=== PATIENT | female | born 1975 | race Two or more races ===

== ENCOUNTER → 2024-09-01 | Outpatient (CLI) | payer MEDICAID, SELFPAY ==
--- NOTE | 2024-09-01 13:30 | XR_ITS ---
Examination: Screening digital mammography, bilateral Computer aided detection 3-D breast Tomosynthesis, bilateral Date and time of exam: September 01, 2024 1315 hours Compared to mammograms dating to October 17, 2017 Indication: Screening, family history, sister breast cancer Technique: Nonmagnified MLO, CC views of the breasts to been obtained, reconstructed from 3-D Tomosynthesis images. R2 computer aided detection program utilized for evaluation of suspicious masses and/or abnormal calcifications. 3-D Tomosynthesis images obtained. Findings: The breasts are heterogeneously dense, which may obscure small masses Benign calcifications 15 mm focal asymmetry upper right breast MLO view 8 mm focal asymmetry upper right breast MLO view Impression: BI-RADS Category 0: Incomplete: Need additional imaging evaluation 15 mm focal asymmetry upper right breast MLO view 8 mm focal asymmetry upper right breast MLO view Recommend follow-up spot tomographic views upper outer quadrant right breast, bilateral breast sonography to complete the workup
== END | disposition home or self-care (01) ==
LOC: CDIM 13:08
PROVIDERS: Referring Provider Nurse Practitioner Family; Visit Provider Nurse Practitioner Family
DX: Z12.31 Encounter for screening mammogram for malignant neoplasm of breast (principal); R92.8 Other abnormal and inconclusive findings on diagnostic imaging of breast; N64.89 Other specified disorders of breast; Z80.3 Family history of malignant neoplasm of breast
CPT/HCPCS: 77063; 77067

== ENCOUNTER → 2024-09-06 | Outpatient (CLI) | payer MEDICAID, SELFPAY ==
--- NOTE | 2024-09-06 07:30 | XR_ITS ---
Examination: Breast ultrasound, unilateral, left complete Date and time of exam: September 06, 2024 0730 hours INDICATIONS: Left breast sonogram February 25, 2024 10:00 nodule left breast Technique: Real-time nair scale ultrasonographic imaging performed left breast including all 4 quadrants as well as nipple retroareolar and axillary region. Findings: 3:00 cyst 8 x 7 mm 10:00 cyst 10 x 10 mm 11:00 cyst 16 x 15 mm 11:00 solid nodule 8 x 6 x 7 mm 3.2 cm left axillary lymph node with smaller lymph nodes IMPRESSION: BI-RADS Category 4: Suspicious for malignancy Suspicious nodule 11:00 position left breast, biopsy is needed to exclude breast, this nodule is amenable to ultrasound-guided breast biopsy for diagnosis
== END | disposition home or self-care (01) ==
LOC: CDIM 07:06
PROVIDERS: Referring Provider Physician Assistant; Visit Provider Physician Assistant
DX: R92.8 Other abnormal and inconclusive findings on diagnostic imaging of breast (principal); N63.32 Unspecified lump in axillary tail of the left breast; N63.22 Unspecified lump in the left breast, upper inner quadrant
CPT/HCPCS: 76641

== ENCOUNTER → 2024-10-27 | Outpatient (CLI) | payer MEDICAID, SELFPAY ==
--- NOTE | 2024-10-27 15:15 | XR_ITS ---
Examination: Breast ultrasound, unilateral, right complete Date and time of exam: October 27, 2024 1531 hours INDICATIONS: Mammogram September 01, 2024 15 mm focal asymmetry upper right breast MLO view 8 mm focal asymmetry upper right breast MLO view Technique: Real-time nair scale ultrasonographic imaging performed right breast including all 4 quadrants as well as nipple retroareolar and axillary region. Findings: 9:00 oval mass lobular margins 8 x 4 x 7 mm IMPRESSION: BI-RADS Category 3: Probably benign findings Recommend 1 additional 6 month right breast sonogram follow-up to document stability of 9:00 nodule described above
--- NOTE | 2024-10-27 15:45 | XR_ITS ---
Examination: Diagnostic digital mammography, unilateral, right Computer aided detection 3-D breast Tomosynthesis, unilateral Date and time of exam: 11/24/2024 1533 hours INDICATIONS: Mammogram December 20, 2022 15 mm focal asymmetry upper right breast MLO view 8 mm focal asymmetry upper right breast MLO view Technique: Nonmagnified MLO, CC views of the right breast have been obtained, reconstructed from 3-D Tomosynthesis images. R2 computer aided detection program utilized for evaluation of suspicious masses and/or abnormal calcifications. 3-D Tomosynthesis images obtained. Findings: The breasts are heterogeneously dense, which may obscure small masses 9:00 nodule 8 mm lobular margins Impression: BI-RADS category 3: Probably benign findings Recommend 1 additional 6 month right mammogram follow-up
== END | disposition home or self-care (01) ==
LOC: CDIM 14:54
PROVIDERS: Referring Provider Nurse Practitioner Family; Visit Provider Nurse Practitioner Family
DX: R92.331 Mammographic heterogeneous density, right breast (principal); N63.15 Unspecified lump in the right breast, overlapping quadrants
CPT/HCPCS: 76641; 77061; 77065; G0279

== ENCOUNTER 2024-11-02 19:40 | Emergency (ER) | payer MEDICAID, SELFPAY ==
[2024-11-02 19:52] VITALS: BP 167/88; PULSE 75; RESP 19; TEMP 36.8; O2SAT 100; BMI 25.2
[2024-11-02] MEDS: FAMOTIDINE 20 MG TABLET 40 MG PO (21:20)
[2024-11-02] MEDS: DiphenhydrAMINE 25 MG CAPSULE PO (21:20)
[2024-11-02] MEDS: DEXAMETHASONE SOD PHOS INJ 10 MG/ML VIAL IM (21:21)
--- NOTE | 2024-11-02 21:42 | PD.EDALLER ---
ED Allergic Reaction RME/HPI General Chief complaint: Allergic Reaction Stated complaint: THINKS SHE HAD ALLERGIC REACTION, RECIEVED EPI PEN Time Seen by Provider: 11/02/24 21:14 Arrival date/time: 11/02/24 19:40 RME / HPI RME / HPI narrative: 49-year-old female presents with complaint of shortness of breath, skin itchiness, and sensation of tongue swelling onset approximately 2 hours ago. Patient states that when she felt her tongue was swelling, she administered her EpiPen. After administering the EpiPen she felt much better. She states that her skin feels itchy still, but denies any tongue swelling or shortness of breath. Denies chest pain. Related Data Home Medications ?Medication ?Instructions ?Recorded ?Confirmed fluticasone propionate 50 1 spray intranasal QDAY #0 spry 04/06/15 07/15/19 mcg/actuation nasal spray,suspension (Flonase Allergy Relief) levothyroxine 88 mcg tablet 88 mcg PO QDAY #0 tabs 04/06/15 07/15/19 losartan 100 1 tab PO QDAY #0 tabs 04/06/15 07/15/19 mg-hydrochlorothiazide 12.5 mg tablet rosuvastatin 10 mg tablet (Crestor) 10 mg PO QDAY 02/22/18 07/15/19 Previous Rx's ?Medication ?Instructions ?Recorded epinephrine 0.3 mg/0.3 mL 0.3 mg (0.3 mL) subcut PRNMRX1 PRN 07/07/18 injection, auto-injector (EpiPen hypersensitivity reaction #2 ea 2-Jonathan) fexofenadine 60 mg tablet (Daysi 60 mg PO Q12H PRN itching #20 tabs 07/07/18 Allergy) ipratropium bromide 21 mcg (0.03 2 spray intranasal BID #30 mL 08/22/ %) nasal spray epinephrine 0.3 mg/0.3 mL 0.3 mg (0.3 mL) subcut PRNMRX1 #2 07/15/19 injection, auto-injector (EpiPen ea 2-Jonathan) hydrocodone 5 mg-acetaminophen 325 1 tab PO Q4H PRN pain #14 tabs 14/20 mg tablet (Wellington) Allergies Allergy/AdvReac Type Severity Reaction Status Date / Time avocado Allergy Unknown Verified 11/02/24 19:42 barley Allergy Unknown Verified 11/02/24 19:42 carrot Allergy Unknown Verified 11/02/24 19:42 cocoa Allergy Unknown Verified 11/02/24 19:42 corn Allergy Unknown Verified 11/02/24 19:42 crab Allergy Unknown Verified 11/02/24 19:42 cranberry Allergy Unknown Verified 11/02/24 19:42 cucumber Allergy Unknown Verified 11/02/24 19:42 mustard Allergy Unknown Verified 11/02/24 19:42 olive extract Allergy Unknown Verified 11/02/24 19:42 peach Allergy Unknown Verified 11/02/24 19:42 peanut Allergy Unknown Verified 11/02/24 19:42 pear Allergy Unknown Verified 11/02/24 19:42 pecan nut Allergy Unknown Verified 11/02/24 19:42 pepper (genus Capsicum) Allergy Unknown Verified 11/02/24 19:42 pineapple Allergy Unknown Verified 11/02/24 19:42 potato Allergy Unknown Verified 11/02/24 19:42 scallops Allergy Unknown Verified 11/02/24 19:42 Review of Systems Review of Systems Systems Reviewed: All systems reviewed, normal except as documented Past Medical History Past Medical History CARDIAC: Positive Cardiac Disorders, Hypercholesterolemia and Hypertension; Negative Congestive Heart Failure RESPIRATORY: Negative Chronic Obstructive Pulmonary Disease (COPD) GENITOURINARY: Negative Renal Disease ENDOCRINE: Positive Hypothyroidism; Negative Diabetes Mellitus Type 1 or Diabetes Mellitus Type 2 PSYCHO/SOCIAL: Positive Anxiety Social History SMOKING STATUS: Never smoker SUBSTANCE USE: does not use Travel History EBOLA RISK: No ED Exam Narrative Physical exam: Constitutional: no acute distress, age appropriate, non-toxic Eyes: PERRL, conjunctivae w/o pallor, EOMI HENT: normocephalic, atraumatic. Oral mucosa moist. Oropharynx normal. No angioedema. Respiratory Effort: no stridor, effort normal, no retractions Breath sounds: Clear bilaterally; No rales, No rhonchi, No wheezing Cardiovascular: regular rhythm, S1 and S2 normal, no murmur Abdominal: soft; non-distended, non-tender Musculoskeletal: no deformities, no swelling, no LE edema Skin: warm, dry; No rash Neurology: alert, oriented X 4. Normal gait. Moves all extremities spontaneously. Psychology: cooperative, normal mood Course Quality Measures none Orders Category Date Time Status Dexamethasone Inj [Decadron Inj] Med 11/02/24 21:14 Discontinued 10 mg IM X1 ONE DiphenhydrAMINE [Benadryl] Med 11/02/24 21:14 Discontinued 25 mg PO X1 ONE Famotidine [Pepcid] Med 11/02/24 21:14 Discontinued 40 mg PO X1 ONE Vital Signs Vital signs: Vital Signs Temperature 98.2 F 11/02/24 19:52 Pulse Rate 75 11/02/24 19:52 Respiratory Rate 19 11/02/24 19:52 Blood Pressure 167/88 H 11/02/24 19:52 Pulse Oximetry (%) 100 11/02/24 19:52 Oxygen Delivery Method Room Air 11/02/24 19:52 Allergic Reaction MDM Narrative MDM Narrative:: 49-year-old female presents with concern for anaphylaxis. Her symptoms have mostly resolved now. Differential diagnoses include anaphylaxis, urticaria, allergic reaction, angioedema No evidence of ongoing anaphylaxis. No evidence of angioedema on exam. Patient was treated here with Decadron, Benadryl, and Pepcid. She reported feeling much better afterwards. She is stable, well-appearing, nontoxic. Vital signs reassuring. Patient reported feeling much better upon reassessment. Recommended follow-up with primary care and strict return to ED precautions given. Patient data External records reviewed:: [facility] previous records Clinical information provided by:: patient Social determinants that could affect healthcare access:: none Patient has the following chronic illnesses:: History of anaphylaxis How is presenting disease/condition affected by chronic disease/condition?: caused by Evaluation data The following diagnostics were reviewed and interpreted by me:: other (specify) (N/A) Lab and/or radiology exams considered but not ordered:: Considered labs and imaging, but not indicated Interpretation Summary: N/A Medications / Prescriptions Medications or Prescriptions considered but not ordered:: N/A Medication administrations:: Medication Administration History Discontinued Medications Dexamethasone Sodium Phosphate (Dexamethasone Sod Phos Inj 10 Mg/Ml Vial) 10 mg IM X1 ONE Stop: 11/02/24 21:15 Last Admin: 11/02/24 21:21 Dose: 10 mg Documented By: EO Diphenhydramine HCl (Diphenhydramine 25 Mg Capsule) 25 mg PO X1 ONE Stop: 11/02/24 21:15 Last Admin: 11/02/24 21:20 Dose: 25 mg Documented By: EO Famotidine (Famotidine 20 Mg Tablet) 40 mg PO X1 ONE Stop: 11/02/24 21:15 Last Admin: 11/02/24 21:20 Dose: 40 mg Documented By: EO See above Consultations Consultation(s) initiated? (list below): No Diagnosis Differential Diagnosis allergic reaction: other (See MDM) Most likely diagnosis given after review of the tests above:: Allergic reaction Admission Indicated Admission indicated?: not indicated Admission Request Was there a request for admission?: No Disposition Plan Disposition Plan: Discharge Discharge Attestation Discharge Attestation: The patient and all family members were given an opportunity to ask questions and understood the discharge instructions. Discharge instructions specifically effects, indications for sooner follow up or return to the emergency department, and the expected course of current diagnosis. Patient condition: Stable Discharge Plan Plan Patient Disposition: HOME (Self Care) Prescriptions/Referrals Prescriptions/Med Rec: No Action ipratropium bromide 0.03 % spray,non-aerosol 2 spray INTRANASAL BID Qty: 30 0RF Rx Instructions: administer into each nostril; wait 30 seconds between sprays rosuvastatin [Crestor] 10 mg tablet 10 mg PO QDAY levothyroxine 88 mcg Tablet 88 mcg PO QDAY Qty: 0 fluticasone propionate [Flonase Allergy Relief] 50 mcg/actuation Rattan,Suspension 1 spray INTRANASAL QDAY Qty: 0 losartan-hydrochlorothiazide 100-12.5 mg Tablet 1 tab PO QDAY Qty: 0 fexofenadine [Daysi Allergy] 60 mg tablet 60 mg PO Q12H PRN (Reason: itching) Qty: 20 0RF epinephrine [EpiPen 2-Jonathan] 0.3 mg/0.3 mL auto-injector 0.3 mg SC PRNMRX1 PRN (Reason: hypersensitivity reaction) Qty: 2 0RF epinephrine [EpiPen 2-Jonathan] 0.3 mg/0.3 mL auto-injector 0.3 mg SC PRNMRX1 Qty: 2 10RF hydrocodone-acetaminophen [Wellington] 5-325 mg tablet 1 tab PO Q4H MDD 4 PRN (Reason: pain) Qty: 14 0RF Referrals: Ale Ro FNP [Primary Care Provider] - In 1 week Problem List Clinical Impression: Allergic reaction Patient/Caregiver Discharge Instructions Education Materials: ED General Allergic Reactions Additional Instructions: Follow-up with primary care as needed. Return to the ED for any new or worsening symptoms. Print Language: [place]ican Stand Alone Forms: [facility]da Award Info., Patient Portal Info Letter
== END 2024-11-02 22:28 | disposition home or self-care (01) ==
PROVIDERS: Emergency Provider Emergency Medicine; PCP Nurse Practitioner Family
DX: R06.02 Shortness of breath (principal); R22.0 Localized swelling, mass and lump, head
CPT/HCPCS: 96372; 99283; J1100; A9270

== ENCOUNTER → 2024-11-15 | Outpatient (CLI) | payer MEDICAID, SELFPAY ==
[2024-11-12 08:53] LABS: Basophils # (Auto) 0.1 Thou/mm3 (0.0-0.2); Basophils % (Auto) 1 % (0-2.5); Eosinophils # (Auto) 0.3 Thou/mm3 (0.0-0.5); Eosinophils % (Auto) 3 % (0-10); Hematocrit 41.4 % (36.0-46.0); Hemoglobin 13.9 g/dL (12.0-16.0); Immature Granulocytes % (Auto) 1 % (0-0); Immature Granulocytes Auto 0.08 Thou/mm3 (0.00-0.00); Lymphocytes # (Auto) 2.6 Thou/mm3 (1.0-4.8); Lymphocytes % (Auto) 28 % (10-50); Mean Corpuscular HGB Conc 33.6 g/dl (31.0-37.0); Mean Corpuscular Hemoglobin 28.5 pg (25.0-35.0); Mean Corpuscular Volume 85 fL (80-100); Monocytes # (Auto) 0.7 Thou/mm3 (0.0-0.8); Monocytes % (Auto) 7 % (0-12); Neutrophils # (Auto) 5.5 Thou/mm3 (1.8-7.7); Neutrophils % (Auto) 60 % (37-80); Nucleated Red Blood Cell % 0 /100 WBC (0); Platelet Count 268 Thou/mm3 (140-440); RDW Standard Deviation 40.4 fL (36.4-46.3); Red Blood Count 4.88 Miln/mm3 (4.00-5.20); White Blood Count 9.1 Thou/mm3 (3.6-11.0)
[2024-11-12 08:55] LABS: HCG,Qualitative Serum Negative
[2024-11-12 09:10] LABS: INR 1.1 (0.9-1.3); Prothrombin Time 11.5 Seconds (9.0-12.2)
--- NOTE | 2024-11-15 10:30 | XR_ITS ---
Examination: PA lateral chest 2 views Technique: Upright PA lateral chest 2 views Exam date and time: November 11, 2024 1522 hrs. Indications: Covid +3 weeks ago with persistent cough Findings: Minor scarring in the lingular segment No lobar pneumonia or pulmonary edema Normal heart size Impression: Minor scarring in the lingular segment
== END | disposition home or self-care (01) ==
PROVIDERS: Radiology Diagnostic Radiology; PCP Nurse Practitioner Family; Referring Provider Nurse Practitioner Family; Visit Provider Nurse Practitioner Family
DX: D24.2 Benign neoplasm of left breast (principal); Z01.812 Encounter for preprocedural laboratory examination
CPT/HCPCS: 19083; 36415; 84703; 85025; 85610; 85730; A4648; A4649; C1894

== ENCOUNTER → 2024-12-14 | Outpatient (CLI) | payer MEDICAID, SELFPAY ==
--- NOTE | 2024-12-14 10:00 | XR_ITS ---
Examination: Diagnostic digital mammography, unilateral, left Computer aided detection 3-D breast Tomosynthesis, unilateral Date and time of exam: December 14, 2024 0956 hours INDICATIONS: Ultrasound-guided left breast biopsy November 15, 2024, negative Technique: Nonmagnified MLO, CC views of the left breast have been obtained, reconstructed from 3-D Tomosynthesis images. R2 computer aided detection program utilized for evaluation of suspicious masses and/or abnormal calcifications. 3-D Tomosynthesis images obtained. Findings: The breast is heterogeneously dense, which may obscure small masses Breast biopsy marker 12:00 position left breast Impression: BI-RADS category 2: Benign findings Return to yearly follow-up mammography Recommend 6 month left breast sonogram follow-up
== END | disposition home or self-care (01) ==
LOC: CDIM 09:49
PROVIDERS: PCP Nurse Practitioner Family; Referring Provider Nurse Practitioner Family; Visit Provider Nurse Practitioner Family
DX: R92.322 Mammographic fibroglandular density, left breast (principal); N64.89 Other specified disorders of breast; Z98.890 Other specified postprocedural states
CPT/HCPCS: 77061; 77065; G0279

== ENCOUNTER 2025-04-18 10:51 | Emergency (ER) | payer BC, SELFPAY ==
[2025-04-18 11:14] VITALS: BP 149/98; PULSE 73; RESP 19; TEMP 36.7; O2SAT 98; BMI 26.0
--- NOTE | 2025-04-18 11:17 | XR_ITS ---
Examination: Pelvic ultrasound, transabdominal, complete Technique: Transabdominal ultrasound of the pelvis performed using grayscale imaging Date and time of exam: April 18, 2025 1216 hours INDICATIONS: Vaginal bleeding beginning 3 weeks ago, worse today. FINDINGS: Uterus 8.1 cm Cervical mass 3.4 x 3.4 x 4.3 cm Endometrial stripe 0.7 cm Right ovary 2.9 cm arterial flow Left ovary 4.0 cm arterial flow 31 x 25 mm cyst IMPRESSION: Recommend MRI pelvis follow-up pre and postcontrast to confirm cervical mass 3.4 x 3.4 x 4.3 cm, differential would include cervical carcinoma
--- NOTE | 2025-04-18 11:18 | PD.EDRME ---
Rapid Medical Screening Exam E Arrival date/time: 04/18/25 10:51 49-year-old female with a history of hypothyroidism, hyperlipidemia, hypertension presents to the emergency room with a chief complaint of vaginal bleeding x 3 days. Patient states she is changing 1 pad an hour and states her bleeding has progressively gotten worse. I have greeted and performed a focused initial assessment of this patient. A comprehensive ED assessment and evaluation of the patient, analysis of all test results, and completion of the medical decision making process will be conducted by additional ED providers. Chief Complaint: Vaginal Bleeding Vital signs: Vital Signs Temperature 98.0 F 04/18/25 11:14 Pulse Rate 73 04/18/25 11:14 Respiratory Rate 19 04/18/25 11:14 Blood Pressure 149/98 H 04/18/25 11:14 Pulse Oximetry (%) 98 04/18/25 11:14 Oxygen Delivery Method Room Air 04/18/25 11:14 Vital signs reviewed by provider: Yes
[2025-04-18 12:03] LABS: Collection Type, Urine Clean Catch; WBC,Urine 0 /hpf (0-5)
[2025-04-18 12:07] LABS: Basophils # (Auto) 0.1 Thou/mm3 (0.0-0.2); Basophils % (Auto) 1 % (0-2.5); Eosinophils # (Auto) 0.3 Thou/mm3 (0.0-0.5); Eosinophils % (Auto) 4 % (0-10); Hematocrit 41.3 % (36.0-46.0); Hemoglobin 14.1 g/dL (12.0-16.0); Immature Granulocytes Auto 0.05 Thou/mm3 (0.00-0.00); Lymphocytes # (Auto) 2.5 Thou/mm3 (1.0-4.8); Lymphocytes % (Auto) 29 % (10-50); Mean Corpuscular HGB Conc 34.1 g/dl (31.0-37.0); Mean Corpuscular Hemoglobin 29.5 pg (25.0-35.0); Mean Corpuscular Volume 86 fL (80-100); Monocytes # (Auto) 0.5 Thou/mm3 (0.0-0.8); Monocytes % (Auto) 6 % (0-12); Neutrophils # (Auto) 5.2 Thou/mm3 (1.8-7.7); Neutrophils % (Auto) 60 % (37-80); Nucleated Red Blood Cell # 0.00 Thou/mm3 (0.00-0.00); Nucleated Red Blood Cell % 0 /100 WBC (0); Platelet Count 297 Thou/mm3 (140-440); RDW Standard Deviation 40.9 fL (36.4-46.3); Red Blood Count 4.78 Miln/mm3 (4.00-5.20); White Blood Count 8.6 Thou/mm3 (3.6-11.0)
[2025-04-18 12:10] LABS: Bilirubin,Urine Negative (Negative); Blood,Urine 1+ (Negative); Clarity,Urine Clear (Clear/Hazy); Color,Urine Colorless (Lt Yel-Yel); Culture Indicated,Urine Not Indicated; Glucose, Urine Negative (Negative); Ketones,Urine Negative (Negative); Leukocyte Esterase,Urine Negative (Negative); Nitrite,Urine Negative (Negative); PH,Urine 6.0 (5.0-7.0); Protein,Urine Negative (Neg - Trace); RBC,Urine 1 /hpf (0-3); Specific Gravity,Urine 1.010 (1.001-1.035); Squamous Epithelial Cell,Urine 2 /hpf (0-5); Urobilinogen,Urine Negative mg/dL (0.0-1.0)
[2025-04-18 12:21] LABS: INR 1.0 (0.9-1.3); Partial Thromboplastin Time 27.3 Seconds (22.0-36.0); Prothrombin Time 11.1 Seconds (9.0-12.2)
[2025-04-18 12:26] LABS: Alanine Aminotransferase 35 U/L (10-49); Albumin, Serum 4.5 gm/dL (3.5-5.0); Albumin/Globulin Ratio 1.5 (1.2-2.2); Alkaline Phosphatase 95 U/L (46-116); Anion Gap 9 (7-16); Aspartate Amino Transferase 25 U/L (0-34); BUN/Creatinine Ratio 14 Ratio (12-20); Bilirubin,Total 0.6 mg/dL (0.3-1.2); Blood Urea Nitrogen 10 mg/dL (9-23); Calcium 9.0 mg/dL (8.3-10.6); Calcium (Corrected) 9.0 mg/dL (8.5-10.1); Carbon Dioxide 26.0 mMol/L (20.0-31.0); Chloride 104 mMol/L (98-107); Creatinine (Component) 0.7 mg/dL (0.6-1.3); Estimated Creatinine Clearance 97.1 mL/min (>60); Globulin 3.0 gm/dL (2.3-3.5); Glucose 103 mg/dL (74-106); Osmolality,Calculated 276 (275-295); Potassium 3.3 mMol/L (3.4-5.1); Sodium 139 mMol/L (136-145); Total Protein 7.5 gm/dL (5.7-8.2); eGFR > 60 See Note
[2025-04-18 13:20] VITALS: BP 167/104; PULSE 73; RESP 16; TEMP 36.7; O2SAT 98
--- NOTE | 2025-04-18 13:41 | PD.EDVAGBL ---
ED OB Contraction Preg RMI/HPI General Chief complaint: Vaginal Bleeding Stated complaint: Cycle for 21 days Time Seen by Provider: 04/18/25 13:22 Arrival date/time: 04/18/25 10:51 Limitations: no limitations RME / HPI RME / HPI Narrative: 04/18/25 10:51 49-year-old female with a history of hypothyroidism, hyperlipidemia, hypertension presents to the emergency room with a chief complaint of vaginal bleeding for 2 weeks, worse in the last 3 days. She states she has been using 2-3 tampons daily. Patient states she is changing 1 pad an hour and states her bleeding has progressively gotten worse today. 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 She had an appointment today at 1630 p.m. but came here as the bleeding got worse. Related Data Home Medications ?Medication ?Instructions ?Recorded ?Confirmed fluticasone propionate 50 1 spray intranasal QDAY #0 spry 04/06/15 07/15/19 mcg/actuation nasal spray,suspension (Flonase Allergy Relief) levothyroxine 88 mcg tablet 88 mcg PO QDAY #0 tabs 04/06/15 07/15/19 losartan 100 1 tab PO QDAY #0 tabs 04/06/15 07/15/19 mg-hydrochlorothiazide 12.5 mg tablet rosuvastatin 10 mg tablet (Crestor) 10 mg PO QDAY 02/22/18 07/15/19 Previous Rx's ?Medication ?Instructions ?Recorded epinephrine 0.3 mg/0.3 mL 0.3 mg (0.3 mL) subcut PRNMRX1 PRN 07/07/18 injection, auto-injector (EpiPen hypersensitivity reaction #2 ea 2-Jonathan) fexofenadine 60 mg tablet (Daysi 60 mg PO Q12H PRN itching #20 tabs 07/07/18 Allergy) ipratropium bromide 21 mcg (0.03 2 spray intranasal BID #30 mL 08/22/ %) nasal spray epinephrine 0.3 mg/0.3 mL 0.3 mg (0.3 mL) subcut PRNMRX1 #2 07/15/19 injection, auto-injector (EpiPen ea 2-Jonathan) hydrocodone 5 mg-acetaminophen 325 1 tab PO Q4H PRN pain #14 tabs 08/05/20 mg tablet ([place]) Allergies Allergy/AdvReac Type Severity Reaction Status Date / Time avocado Allergy Unknown Verified 11/02/24 19:42 barley Allergy Unknown Verified 11/02/24 19:42 carrot Allergy Unknown Verified 11/02/24 19:42 cocoa Allergy Unknown Verified 11/02/24 19:42 corn Allergy Unknown Verified 11/02/24 19:42 crab Allergy Unknown Verified 11/02/24 19:42 cranberry Allergy Unknown Verified 11/02/24 19:42 cucumber Allergy Unknown Verified 11/02/24 19:42 mustard Allergy Unknown Verified 11/02/24 19:42 olive extract Allergy Unknown Verified 11/02/24 19:42 peach Allergy Unknown Verified 11/02/24 19:42 peanut Allergy Unknown Verified 11/02/24 19:42 pear Allergy Unknown Verified 11/02/24 19:42 pecan nut Allergy Unknown Verified 11/02/24 19:42 pepper (genus Capsicum) Allergy Unknown Verified 11/02/24 19:42 pineapple Allergy Unknown Verified 11/02/24 19:42 potato Allergy Unknown Verified 11/02/24 19:42 scallops Allergy Unknown Verified 11/02/24 19:42 Review of Systems Review of Systems Systems Reviewed: All systems reviewed, normal except as documented ED Exam General Limitations: Present no limitations General appearance: Present alert and in no apparent distress Head Head exam: Present atraumatic Eye Eye exam: Present normal appearance, PERRL and EOMI ENT ENT exam: Present normal exam, normal oropharynx and mucous membranes moist Neck Neck exam: Present normal inspection, full ROM and trachea midline Chest Chest inspection: Present normal inspection and symmetric chest wall rise Respiratory Respiratory exam: Present normal lung sounds bilaterally Cardiovascular Cardiovascular exam: Present regular rate, normal rhythm and normal heart sounds Abdominal Exam Abdominal exam: Present soft and normal bowel sounds Extremities Exam Extremities exam: Present normal inspection and full ROM Back Exam Back exam: Present normal inspection and full ROM Neurological Exam Neurological exam: Present alert, oriented X3 and CN II-XII intact Psychiatric Psychiatric exam: Present normal affect and normal mood Skin Skin exam: Present warm, dry, intact and normal color Course Course Course Narrative: Dr. Rosado with gynecology was contacted at approximately 1420 p.m. Case were discussed including patient's workup results. Patient may follow-up in clinic with either herself or with her mobile home set up person that she has appoint with today. Patient may need outpatient biopsy. Quality Measures none Orders Category Date Time Status US pelvic complete Stat Exams 04/18/25 11:17 Completed CBC Stat Lab 04/18/25 11:31 Completed CMP [Comprehensive Metabolic Panel] Stat Lab 04/18/25 11:31 Completed PT [Prothrombin Time with INR] Stat Lab 04/18/25 11:31 Completed PTT [Partial Thromboplastin Time] Stat Lab 04/18/25 11:31 Completed Thyroid Stimulating Hormone Stat Lab 04/18/25 11:31 Completed Type and Screen Stat Lab 04/18/25 11:31 Completed UA, C/S IF [Urinalysis, C/S if Indicated] Stat Lab 04/18/25 11:24 Completed Vital Signs Vital signs: Vital Signs Temperature 98.0 F 04/18/25 11:14 Pulse Rate 73 04/18/25 11:14 Respiratory Rate 19 04/18/25 11:14 Blood Pressure 149/98 H 04/18/25 11:14 Pulse Oximetry (%) 98 04/18/25 11:14 Oxygen Delivery Method Room Air 04/18/25 11:14 Vaginal Bleeding MDM Narrative MDM Narrative: 04/18/25 10:51 49-year-old female with a history of hypothyroidism, hyperlipidemia, hypertension presents to the emergency room with a chief complaint of vaginal bleeding for 2 weeks, worse in the last 3 days. She states she has been using 2-3 tampons daily. Patient states she is changing 1 pad an hour and states her bleeding has progressively gotten worse today. 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 She had an appointment today at 1630 p.m. but came here as the bleeding got worse. On exam, patient is nontoxic-appearing and in no visible signs of distress. Vital signs are stable, she has no tachycardia. Abdomen is soft and supple. Pelvic exam was performed with female tech present. There is approximately 10 cc of blood in the vaginal canal. No masses were appreciated. There is no cervical motion tenderness. CBC reveals no leukocytosis or anemia. Metabolic panel is unremarkable. TSH is unremarkable. Urinalysis unremarkable. BUFFING MACHINE OPERATOR [employer]IA[employer]OMATIC was consulted and believe the patient can be discharged from the ER for outpatient follow-up. This was discussed with patient who agrees to follow-up with her currently BUFFING MACHINE OPERATOR [employer]IAUTOMATIC. She may also follow-up with our on-call mobile home set up person. She was advised to return as needed for worsening emergent changes. Patient data External records reviewed:: None Clinical information provided by:: parent Social determinants that could affect healthcare access:: none Patient has the following chronic illnesses:: Patty's thyroiditis How is presenting disease/condition affected by chronic disease/condition?: uneffected by Evaluation data The following diagnostics were reviewed and interpreted by me:: lab results (No leukocytosis or anemia, no metabolic derangement) and radiology exam(s) (Ultrasound of the pelvis reveals cervical mass.) Lab and/or radiology exams considered but not ordered:: N/A Interpretation Summary: N/A Medications / Prescriptions Medications or Prescriptions considered but not ordered:: N/A Medication administrations:: N/A Consultations Consultation(s) initiated? (list below): No Diagnosis Vaginal Bleeding Differential Diagnosis: dysfunctional uterine bleeding and menometrorrhagia Most likely diagnosis given after review of the tests above:: Vaginal bleed Admission Indicated Admission indicated?: not indicated Admission Request Was there a request for admission?: No Disposition Plan Disposition Plan: Discharge Discharge Attestation Discharge Attestation: The patient and all family members were given an opportunity to ask questions and understood the discharge instructions. Discharge instructions specifically effects, indications for sooner follow up or return to the emergency department, and the expected course of current diagnosis. Patient condition: Stable Discharge Plan Plan Patient Disposition: HOME (Self Care) Patient condition on transfer: Stable Prescriptions/Referrals Prescriptions/Med Rec: No Action ipratropium bromide 0.03 % spray,non-aerosol 2 spray INTRANASAL BID Qty: 30 0RF Rx Instructions: administer into each nostril; wait 30 seconds between sprays rosuvastatin [Crestor] 10 mg tablet 10 mg PO QDAY levothyroxine 88 mcg Tablet 88 mcg PO QDAY Qty: 0 fluticasone propionate [Flonase Allergy Relief] 50 mcg/actuation [place],Suspension 1 spray INTRANASAL QDAY Qty: 0 losartan-hydrochlorothiazide 100-12.5 mg Tablet 1 tab PO QDAY Qty: 0 fexofenadine [Daysi Allergy] 60 mg tablet 60 mg PO Q12H PRN (Reason: itching) Qty: 20 0RF epinephrine [EpiPen 2-Jonathan] 0.3 mg/0.3 mL auto-injector 0.3 mg SC PRNMRX1 PRN (Reason: hypersensitivity reaction) Qty: 2 0RF epinephrine [EpiPen 2-Jonathan] 0.3 mg/0.3 mL auto-injector 0.3 mg SC PRNMRX1 Qty: 2 10RF hydrocodone-acetaminophen [[place]] 5-325 mg tablet 1 tab PO Q4H MDD 4 PRN (Reason: pain) Qty: 14 0RF Referrals: [facility] ([facility]),Mine Soto MD [Physician] - In 1 week Ale Ro FNP [Primary Care Provider] - In 1 week Problem List Clinical Impression: Vaginal bleeding, Cervical mass Patient/Caregiver Discharge Instructions Education Materials: Discharge Instructions for ... Additional Instructions: - Follow-up with gynecology. You may contact Dr Rosado or attend your appointment today with your mobile home set up person. You will need further outpatient workup, consider biopsy. -Your blood counts today were stable, your hemoglobin is 14.1 and hematocrit 41.3. Your metabolic panel was unremarkable with the exception of a very mild hypokalemia (low potassium) of 3.3. Your urinalysis did not reveal any urinary tract infection. Your TSH today is 3.98. -Please return to the emergency room at anytime for any worsening or emergent changes. Print Language: Mongolian Stand Alone Forms: Brenda Award Info., Patient Portal Info Letter
[2025-04-18 14:14] LABS: Thyroid Stimulating Hormone 3.98 uIU/mL (0.55-4.78)
== END 2025-04-18 14:51 | disposition home or self-care (01) ==
PROVIDERS: Nurse Practitioner Family; Emergency Provider Emergency Medicine; PCP Nurse Practitioner Family
DX: N88.8 Other specified noninflammatory disorders of cervix uteri (principal); N93.9 Abnormal uterine and vaginal bleeding, unspecified
CPT/HCPCS: 36415; 76856; 80053; 81001; 84443; 85025; 85610; 85730; 86850; 86900; 86901; 99283